=== PATIENT | female | born 1955 | race Caucasian/White ===

== ENCOUNTER 2020-08-31 08:19 | Outpatient (CLI) | payer OTHER, SELFPAY ==
--- NOTE | ~2020-08-31 | MM_ITS ---
EXAMINATION: MM screening pop BI w pepe HISTORY: Screening TECHNIQUE: Craniocaudal and mediolateral oblique 3-D tomosynthesis images were obtained and synthetic 2-D images were generated. CAD analysis was submitted and interpreted. COMPARISON: Comparison to multiple prior studies sequentially, with oldest reviewed study dated 09/12. BREAST PARENCHYMAL COMPOSITION: The breasts are heterogeneously dense, which may obscure small masses . FINDINGS: There is no evidence of suspicious mass, calcification, or architectural distortion to sugg est malignancy in either breast. There has been no suspicious interval change. IMPRESSION: 1. No mammographic evidence of malignancy. 2. Recommend routine screening mammography in one year. BI-RADS Category 1: Negative Reviewed, dictated and finalized at location A.
== END 2020-08-31 08:20 | disposition home or self-care (01) ==
LOC: ANHIMG 08:22
PROVIDERS: Visit Provider Obstetrics & Gynecology
DX: Z12.31 Encounter for screening mammogram for malignant neoplasm of breast (principal)
CPT/HCPCS: 77063; 77067

== ENCOUNTER → 2021-10-06 10:12 | Outpatient (CLI) | payer OTHER, SELFPAY ==
--- NOTE | ~2021-10-06 | US_ITS ---
EXAMINATION: US transvaginal DATE: 10/06/2021 10:38 INDICATION: Adnexal cyst. Comparison:No prior studies for comparison. TECHNIQUE: Multiple transabdominal and endovaginal sonographic images of the pelvis performed. FINDINGS: The uterus measures 4.5 x 2.4 x 4 cm. The endometrial complex measures 2 mm. The ovaries are not visualized. There is no free fluid in the pelvis. There are no abnormal masses seen on either side. IMPRESSION: 1. Unremarkable pelvic ultrasound. Reviewed, dictated and finalized at location A.
== END ==
PROVIDERS: PCP Physician Assistant; Visit Provider Physician Assistant
DX: N94.9 Unspecified condition associated with female genital organs and menstrual cycle (principal)
CPT/HCPCS: 76830

== ENCOUNTER 2022-01-04 12:55 | Outpatient (CLI) | payer OTHER, SELFPAY ==
--- NOTE | ~2022-01-04 | MM_ITS ---
EXAMINATION: MM screening pop BI w pepe HISTORY: Screening TECHNIQUE: Craniocaudal and mediolateral oblique 3-D tomosynthesis images were obtained and synthetic 2-D images were generated. CAD analysis was submitted and interpreted. COMPARISON: Comparison to multiple prior studies sequentially, with oldest reviewed study dated 09/12. BREAST PARENCHYMAL COMPOSITION: The breasts are heterogeneously dense, which may obscure small masses . FINDINGS: There is no evidence of suspicious mass, calcification, or architectural distortion to sugg est malignancy in either breast. There has been no suspicious interval change. IMPRESSION: 1. No mammographic evidence of malignancy. 2. Recommend routine screening mammography in one year. BI-RADS Category 1: Negative Reviewed, dictated and finalized at location D.
== END 2022-01-04 12:56 | disposition home or self-care (01) ==
PROVIDERS: PCP Family Medicine; Visit Provider Obstetrics & Gynecology
DX: Z12.31 Encounter for screening mammogram for malignant neoplasm of breast (principal)
CPT/HCPCS: 77063; 77067

== ENCOUNTER 2023-05-14 08:30 | Outpatient (CLI) | payer OTHER, SELFPAY ==
--- NOTE | ~2023-05-14 | MM_ITS ---
EXAMINATION: MM screening pop BI w pepe HISTORY: Screening mammogram TECHNIQUE: Craniocaudal and mediolateral oblique 3-D tomosynthesis images were obtained and synthetic 2-D images were generated. CAD analysis was submitted and interpreted. COMPARISON: 01/04/2022, 08/31/2020 bilateral screening mammogram examinations BREAST PARENCHYMAL COMPOSITION: The breasts are heterogeneously dense, which may obscure small masses . FINDINGS: Scattered bilateral benign calcifications. Benign arterial calcification. Arterial calcific ation may be associated with increased risk for coronary artery disease. There is no evidence of susp icious mass, calcification, or architectural distortion to suggest malignancy in either breast. There has been no suspicious interval change. IMPRESSION: 1. Benign calcifications No mammographic evidence of malignancy. 2. Recommend routine screening mammography in one year. BI-RADS Category 2: Benign finding(s). Reviewed, dictated and finalized at location A.
--- NOTE | ~2023-05-14 | DEXA_ITS ---
Bone Density Report Name: BUNNY BARRAGAN Age: 67 Sex: Female Ethnicity: White Date of : 1955 Indication: postmenopausal; screening for osteoporosis; Referring Provider: SHANIA, PAYAM Study: Bone densitometry was performed. Exam Date: May 14, 2023 Accession number: [id number] Bone Density: Region BMD T-score Z-score Classification AP Spine(L1-L4) 0.670 -3.4 -1.5 Osteoporosis Femoral Neck (Left) 0.547 -2.7 -1.1 Osteoporosis Total Hip (Left) 0.680 -2.2 -0.8 Osteopenia Femoral Neck (Right) 0.588 -2.4 -0.7 Osteopenia Total Hip (Right) 0.712 -1.9 -0.5 Osteopenia Total Hip Mean 0.696 -2.1 -0.7 Osteopenia World Health Organization criteria for BMD impression classify patients as: Normal (T-score at or above -1.0), Osteopenia (T-score between -1.0 and -2.5), or Osteoporosis (T-score at or below -2.5). 10-year Fracture Risk: FRAX not reported because: Some T-score for Spine Total or Hip Total or Femoral Neck at or below -2.5 Clinical Information Provided by Patient: Patient maximum height was 61.5 No regular weight bearing exercise Drinks caffeinated beverages Onset of menses at age 14 Number of children 2 Impression: The patient has osteoporosis, based on the Total Spine T-score. Discussion: INCREASED RISK OF FRACTURE. BONE DENSITY IS UNDESIRABLY LOW AT ONE OR MORE SKELETAL SITES, CONSISTENT WITH POSTMENOPAUSAL OSTEOPOROSIS. This patient's lowest T-score meets the World Health Organization's (WHO) criteria for osteoporosis at one or more sites (T-score -2.5 or below). In untreated patients, the risk of osteoporotic fracture increases approximately two-fold for each 1.0 SD decrease in T-score. Low bone density is not the only risk factor for fracture; also consider factors such as patient's age, frailty or poor health, risk of falling, risk of injury, previous osteoporotic fracture, family history of osteoporosis, cigarette smoking, low body weight, etc. Not everyone with low bone mineral density has osteoporosis; osteomalacia and other metabolic bone disorders should also be considered. Patients who have osteoporosis should be evaluated for specific diseases and conditions (secondary causes) that may cause or contribute to bone loss. The [place] [employer] Endocrinologists (AACE) and National Osteoporosis Foundation (NOF) recommend pharmacologic intervention for all postmenopausal women whose T-score is in this range. The patient should follow a healthful lifestyle (good nutrition with adequate calcium and vitamin D, and appropriate weight-bearing exercise). Follow-Up: Consider a repeat BMD and Vertebral Fracture Assessment (VFA) exam in 2 years or sooner if medically necessary, to reassess this patient's status. Reported by: JACINTA on 05/14/2023 8:57:00 AM.
== END 2023-05-14 08:31 | disposition home or self-care (01) ==
LOC: ANHIMG 08:33
PROVIDERS: PCP Nurse Practitioner Family; Visit Provider Nurse Practitioner Family
DX: Z12.31 Encounter for screening mammogram for malignant neoplasm of breast (principal); M81.0 Age-related osteoporosis without current pathological fracture; Z78.0 Asymptomatic menopausal state; M85.852 Other specified disorders of bone density and structure, left thigh; M85.851 Other specified disorders of bone density and structure, right thigh
CPT/HCPCS: 77063; 77067; 77080

== ENCOUNTER 2023-11-10 20:39 | Observation (INO) | payer OTHER, SELFPAY ==
[2023-11-10] VITALS (12 sets, daily range): BP systolic 94–145; BP diastolic 47–70; PULSE 79–95; RESP 15–26; TEMP 36.4; O2SAT 96–99
--- NOTE | ~2023-11-10 | XR_ITS ---
XR chest 1V portable DATE: 11/11/2023 14:23 INDICATION: Drug overdose TECHNIQUE: Portable upright AP view COMPARISON: 09/20/2018 PA chest FINDINGS: Normal heart size. There is mild aortic arch calcification and aortic unfolding. No hilar or mediastinal enlargement. No pulmonary infiltrate or consolidation, pulmonary vascular congestion or pleural effusion or pneumo thorax. Osteopenia. IMPRESSION: No active cardiopulmonary disease Reviewed, dictated and finalized at location A.
--- NOTE | 2023-11-10 20:40 | ECG_ITS ---
Test Date: 2023-11-10 21:06:18 Measurements Intervals [place] Rate: 84 P: 52 DE: 154 QRS: 15 QRSD: 77 T: 34 QT: 333 QTc: 395 Interpretive Statements SINUS RHYTHM BASELINE ARTIFACT- I, II, III, AVR, AVL, AVF, V2 NORMAL ECG No previous ECG available for comparison Electronically Signed On 11-11-2023 08:35:03 CDT by Bhupinder Cali D.O.
--- NOTE | 2023-11-10 21:12 | PC.NURSE ---
[place] poison control contacted
[2023-11-10 21:13] LABS: Basophils Percent Auto 0.6 % (0.2-1.2); Eosinophils Absolute Auto 0.2 K/mm3 (0-0.3); Eosinophils Percent Auto 2.4 % (0-4.4); Hematocrit 40.9 % (37.0-47.0); Hemoglobin 13.5 g/dL (12.0-15.0); Immature Granulocyte Absolute 0.02 K/mm3 (0.00-0.031); Immature Granulocyte Percent A 0.3 % (0-0.5); Lymphocytes Absolute Auto 2.31 K/mm3 (0.9-3.2); Lymphocytes Percent Auto 34.3 % (18.3-44.2); Mean Corpuscular Hemoglobin 29.9 pg (26-34); Mean Corpuscular Volume 90.5 fl (80-100); Mean Platelet Volume 9.9 fl (7.4-10.4); Monocytes Absolute Auto 0.6 K/mm3 (0.1-0.6); Monocytes Percent Auto 9.4 % (2.6-8.5); Neutrophils Absolute Auto 3.6 K/mm3 (1.3-6.7); Platelet Count Result 322 k/mm3 (150-375); Red Blood Count 4.52 M/mm3 (4.2-5.4); Red Cell Distribution Width 13.3 % (11.5-14.5); White Blood Count 6.7 K/mm3 (4.5-10.0)
[2023-11-10 21:15] LABS: BEDSIDEPREGUCG Negative (Negative)
[2023-11-10 21:23] LABS: Acetaminophen < 10 ug/mL (10-30); Ethanol < 10 mg/dL (<10); Salicylate < 1.0 mg/dL (2-20)
[2023-11-10 21:24] LABS: Alanine Aminotransferase 27 U/L (6-35); Albumin Level 4.7 g/dL (3.5-5.1); Alkaline Phosphatase 63 U/L (38-126); Anion Gap 13 mmol/L (4-12); Aspartate Amino Transferase 33 U/L (14-36); Bilirubin,Total 0.3 mg/dL (0.2-1.3); Blood Urea Nitrogen 8 mg/dL (7-17); Calcium 9.5 mg/dL (8.4-10.2); Carbon Dioxide 28 mmol/L (22-30); Chloride 97 mmol/L (98-107); Estimated CRCL calculation 33 ml/min; Estimated Glomerular Filt Rate 49; Glucose 142 mg/dL (65-110); Sodium 138 mmol/L (137-145)
[2023-11-10 21:30] LABS: Amphetamine Screen Urine Negative (Negative); Barbiturate Screen Urine Negative (Negative); Benzodiazepines Screen Urine Negative (Negative); Cannabinoid Screen Urine Negative (Negative); Cocaine Screen Urine Negative (Negative); Methadone Screen Urine Negative (Negative); Opiate Screen Urine Negative (Negative); Phencyclidine Screen Urine Negative (Negative)
[2023-11-10 22:16] LABS: Add Urine Microscopic? YES; Appearance Urine Clear (Clear); Bacteria Urine None Seen /hpf; Bilirubin Urine Negative (Negative); Blood Urine 1+ (Negative); Color Urine Yellow (Yellow); Glucose Urine UA Negative (Negative); Ketones Urine Negative (Negative); Leukocyte Esterase Ur Trace LEU/UL (Negative); Need Manual Microscopic Reviewed; Nitrate Urine Negative (Negative); Non Pathogenic Casts 0-2; Protein Urine Negative (Negative); RBC Urine 0-2 /hpf (0-2); Specific Grav Ur 1.003 (1.001-1.035); Squamous Epithelial Cell Urine None Seen /hpf (Few); Urobilinogen Urine 0.2 mg/dL (<2.0); WBC Urine 0-5 /hpf (0-3)
[2023-11-10] MEDS: SODIUM CHLORIDE 0.9% IV 1,000 ML 999 ML IV CONT ×3 (22:19→23:33)
--- NOTE | 2023-11-10 22:19 | ED.OVERDOSE ---
HPI - Overdose General Chief Complaint: Overdose Stated Complaint: overdose Time Seen by Provider: 11/10/23 21:09 History of Present Illness HPI Narrative: 68 Year old female presenting after suicide attempt. Patient's is at bedside and helps with the history. Sounds like she has a very long history of depression that has been very difficult to manage. She has undergone shock treatments and has been hospitalized multiple times. Her last hospitalization was approximately 4-5 years ago. Her psychiatrist has been changing some of her medications around and unfortunately her depression has been worsening and she feels her intrusive thoughts have made living unbearable. Tonight she took 13 mg of lorazepam with the intent to end her life as she feels that she cannot take it anymore. She immediately went downstairs and told her who brought her in for evaluation. Currently, she denies complaints. Feels a bit sleepy. Related Data Home Medications Medication Instructions Recorded Confirmed buspirone 30 mg tablet 30 mg PO BID 09/28/21 11/11/23 carvedilol 6.25 mg tablet 6.25 mg PO BID 11/11/23 11/11/23 lamotrigine 100 mg tablet 100 mg PO DAILY 11/11/23 11/11/23 lorazepam 1 mg tablet 1 mg PO Q6H PRN Anxiety 11/11/23 11/11/23 melatonin 10 mg chewable tablet 10 mg PO HS 11/11/23 11/11/23 olanzapine 5 mg tablet 5 mg PO HS 11/11/23 11/11/23 rosuvastatin 40 mg tablet 40 mg PO HS 11/11/23 11/11/23 sacubitril 24 mg-valsartan 26 mg 1 tablet PO BID 11/11/23 11/11/23 tablet (Entresto) valbenazine 80 mg capsule 80 mg PO DAILY 11/11/23 11/11/23 (Ingrezza) desvenlafaxine 50 mg 100 mg PO DAILY 11/13/23 11/13/23 tablet,extended release 24 hr Allergies Allergy/AdvReac Type Severity Reaction Status Date / Time Dust Allergy Unknown ITCHING, Uncoded 11/10/23 21:13 WATERING EYES, SNEEZING Review of Systems Review of Systems: All systems reviewed & are unremarkable except as noted in HPI and below PMFSH Past Medical History Medical History (Updated 09/12/24 @ 18:33 by Albina Huang MD) Abnormal Pap smear of cervix 08/05/14 hpv positive; colp 09/16/14 LGSIL LEOLA 1; 02/13/17 (+) hpv; Anxiety Depression High cholesterol History of delivery @ 6m due to 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 Osteoporosis Other ovarian cyst, right side Screening mammogram, encounter for Surgical History Surgical History H/O left wrist surgery (02/02/15) History of 1979, 1983 History of colposcopy with cervical biopsy 09/16/14 benign 03/03/19 Family History Family History Mother Heart disease Osteoporosis Father Diabetes mellitus Malignant neoplasm of skin Social History Social History Smoking packs per day: 1 Smoking cigarettes per day: 20.0 Years smoked: 34 Smoking pack-years: 34.00 Smoking status: Former smoker Tobacco type: cigarettes Smoking end date: 03/05/00 Alcohol intake: current Drinks per week: 3 Substance use: never Substance use type: does not use Do You Feel Safe in your Home?: Yes Lack of Transportation: No Lack of Food: Never True Current Housing: I Have Housing Concerned About Future Housing: No Difficulty Paying Gas/Electric Bills: No Difficulty Paying for Meds: No Currently Unemployed: No Education: High School Diploma/GED Difficulty w/ Childcare or Family Care: No Living arrangements: other Additional living arrangements comments: Occupation/Education: retired Gender identity (if verbalized by the patient): Female Sexual Orientation (if Verbalized by the Patient): Straight or Heterosexual Spiritual care concerns: No Exam Narrative: GENERAL: Calm, cooperative, appears somnolent HEAD: Normocephalic, atraumatic. EYES:
[2023-11-10 22:22] LABS: SARS-CoV-2 RNA PCR Negative (Negative)
--- NOTE | 2023-11-10 23:24 | PM.IMHP ---
H&P: HPI History of Present Illness Date/Time: 11/10/23 23:24 Chief Complaint: OD Narrative: THIS IS A 68-YEAR-OLD FEMALE WITH PAST MEDICAL HISTORY SIGNIFICANT FOR GENERALIZED ANXIETY DISORDER, MAJOR DEPRESSION, OSTEOPOROSIS. PATIENT WAS HAVING THOUGHTS OF HURTING HERSELF TODAY AND TOOK SEVERAL OF HER LORAZEPAM TABLET AND WAS BROUGHT TO THE EMERGENCY ROOM AFTER SHE TOLD HER . 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 Osteoporosis Other ovarian cyst, right side Screening mammogram, encounter for Surgical History Surgical History H/O left wrist surgery (02/02/15) History of 1979, 1983 History of colposcopy with cervical biopsy 09/16/14 benign 03/03/19 Family History Family History Mother Heart disease Osteoporosis Father Diabetes mellitus Malignant neoplasm of skin Social History Social History Smoking packs per day: 1 Smoking cigarettes per day: 20.0 Years smoked: 34 Smoking pack-years: 34.00 Smoking status: Former smoker Tobacco type: cigarettes Smoking end date: 03/05/00 Alcohol intake: current Drinks per week: 3 Substance use: never Substance use type: does not use Do You Feel Safe in your Home?: Yes Lack of Transportation: No Lack of Food: Never True Current Housing: I Have Housing Concerned About Future Housing: No Difficulty Paying Gas/Electric Bills: No Difficulty Paying for Meds: No Currently Unemployed: No Education: High School Diploma/GED Difficulty w/ Childcare or Family Care: No Living arrangements: other Additional living arrangements comments: Occupation/Education: retired Gender identity (if verbalized by the patient): Female Sexual Orientation (if Verbalized by the Patient): Straight or Heterosexual Spiritual care concerns: No Meds Home Medications and Allergies Home Medications Medication Instructions Recorded Confirmed Type buspirone 30 mg tablet 30 mg PO BID 09/28/21 11/11/23 History carvedilol 6.25 mg tablet 6.25 mg PO BID 11/11/23 11/11/23 History lamotrigine 100 mg tablet 100 mg PO DAILY 11/11/23 11/11/23 History lorazepam 1 mg tablet 1 mg PO Q6H PRN Anxiety 11/11/23 11/11/23 History melatonin 10 mg chewable tablet 10 mg PO HS 11/11/23 11/11/23 History olanzapine 5 mg tablet 5 mg PO HS 11/11/23 11/11/23 History rosuvastatin 40 mg tablet 40 mg PO HS 11/11/23 11/11/23 History sacubitril 24 mg-valsartan 26 mg 1 tablet PO BID 11/11/23 11/11/23 History tablet (Entresto) valbenazine 80 mg capsule 80 mg PO DAILY 11/11/23 11/11/23 History (Ingrezza) Allergies Allergy/AdvReac Type Severity Reaction Status Date / Time Dust Allergy Unknown ITCHING, Uncoded 11/10/23 21:13 WATERING EYES, SNEEZING Vital Signs Vital Signs - 24 hr 11/10/23 20:46 11/10/23 21:08 11/10/23 21:08 Temperature 97.5 F L Pulse Rate 88 Respiratory Rate 20 15 Blood Pressure 145/70 H Pulse Oximetry 99 98 Oxygen Delivery Room Air Room Air 11/10/23 21:12 Temperature Pulse Rate 91 Respiratory Rate 22 H Blood Pressure 129/58 L Pulse Oximetry 98 Oxygen Delivery Exam Narrative: PATIENT IS LAYING IN A STRETCHER Const: General: comfortable, no acute distress, well developed, alert, awake and average body habitus Nutritional Appearance: average body habitus Orientation/con
[2023-11-11] VITALS (14 sets, daily range): BP systolic 96–167; BP diastolic 49–144; PULSE 60–118; RESP 12–18; TEMP 36.5–37.1; O2SAT 96–100; BMI 23.1
--- NOTE | 2023-11-11 01:44 | ADMGEN ---
This patient, Lelo Cazares, was admitted to Intensive Care Unit-4 on 11/11/23 at 0045. Patient/family oriented to hospital policies and general routines including ID bracelet, bed and alarms, visiting hours, pain management, procedures, bathroom and other care routines, personal items, smoking policy, room service/diet, and visiting hours. Information on how to activate the Rapid Response Team has been discussed. Patient/Family are encouraged to report perceived risks to care and to ask questions if they do not understand what they are told or what they should do.
[2023-11-11 03:34] LABS: MRSA (PCR) NOT DETECTED (NOT DETECTE)
--- NOTE | 2023-11-11 08:22 | WPDCNINT ---
Assessment and Plan Assessment and plan (1) Benzodiazepine (tranquilizer) overdose: Code(s): T42.4X1A - Poisoning by benzodiazepines, accidental (unintentional), initial encounter Status: Acute Assessment and Plan: Patient presented with lorazepam over does, patient took lorazepam 1 mg x 13 pills for a total of 30 mg, after ingestion she immediately told her who brought to the ER. Patient was given 3 L IV fluids, was be slightly somnolent in the ER, poison Control was notified and recommended monitoring patient as an inpatient. -urine drug screen was negative -patient denies any of the medications or illicit drug use -once patient is medically stable will have care coordination and crisis management evaluate the patient (2) Suicidal ideation: Code(s): R45.851 - Suicidal ideations Status: Acute Assessment and Plan: Patient did agrees to taking lorazepam 30 mg to harm herself and end her life as her depression has been worsening and she feels intrusive thoughts have made living unbearable. -continue suicide precautions -bedside sitter -she did tell the ER physician that she is suicidal but not homicidal (3) CHF (congestive heart failure): Qualifiers: Heart failure type: unspecified Heart failure chronicity: unspecified Qualified Code(s): I50.9 - Heart failure, unspecified Code(s): I50.9 - Heart failure, unspecified Status: Acute Assessment and Plan: Unspecified CHF, no echocardiogram in our system -patient is on Entresto and Coreg, will currently hold as patient blood pressures were low (4) Depression: Qualifiers: Depression Type: major depressive disorder Major depression recurrence: recurrent Active/Remission status: currently active Major depression episode severity: unspecified Qualified Code(s): F33.9 - Major depressive disorder, recurrent, unspecified Code(s): F32.A - Depression, unspecified Status: Acute Assessment and Plan: Patient has been battling with depression many years, she has received ECT treatment. Has been hospitalized multiple times. -her psychiatrist has been switching her depression medications -will continue buspirone, Desvenlafaxine, lamotrigine, olanzapine and trazodone Plan DVT prophylaxis: Lovenox Stress ulcer prophylaxis: Protonix (patient takes omeprazole at home) Nutrition: Heart Healthy diet Code Status: Full code Critical Care Time Spent: 44 minutes Due to a high probability of clinically significant, life threatening deterioration, the patient required my highest level of preparedness to intervene emergently and I personally spent this critical care time directly and personally managing the patient. This critical care time included obtaining a history; examining the patient; pulse oximetry; ordering and review of studies; arranging urgent treatment with development of a management plan; evaluation of patient's response to treatment; frequent reassessment; and discussions with other providers. It was exclusive of separately billable procedures and treating other patients and teaching time. Please see Assessment and Plan section and the rest of the note for further information on patient assessment and treatment This dictation may have been done utilizing a voice recognition system. Attempts have been made to correct errors. However, there may be uncorrected grammatical, spelling, and recognitions errors present. Probate Paralegal Consult Note Consult date: 11/11/23 Reason for consult: Intentional benzodiazepine overdose, suicidal behavior/attempt, somnolence HPI: Lelo Cazares is a 68 year old female with significant past medical history of depression which she has received ECT treatments and has been hospital multiple times. A psychiatrist has been switching some of her medications around and unfortunately had depression has been worsening. Patient presented with intentional overdose an
[2023-11-11] MEDS: lamoTRIgine 100 MG TABLET PO (09:51)
[2023-11-11] MEDS: ENOXAPARIN 40 MG/0.4 ML SYRINGE SUB-Q (09:51)
[2023-11-11] MEDS: busPIRone HCL 10 MG TABLET 30 MG PO (09:51)
[2023-11-11] MEDS: PANTOPRAZOLE 40 MG TABLET PO (09:51)
[2023-11-11] MEDS: SENNOSIDES 8.6 MG TABLET PO (09:52)
--- NOTE | 2023-11-11 14:09 | PM.IMPN ---
Progress Note: A&P Assessment and Plan (1) Benzodiazepine (tranquilizer) overdose: Code(s): T42.4X1A - Poisoning by benzodiazepines, accidental (unintentional), initial encounter Status: Acute Assessment and Plan: Patient presented with lorazepam over does, patient took lorazepam 1 mg x 13 pills for a total of 30 mg, after ingestion she immediately told her who brought to the ER. Patient was given 3 L IV fluids, was be slightly somnolent in the ER, poison Control was notified and recommended monitoring patient as an inpatient. -urine drug screen was negative -patient denies any of the medications or illicit drug use -once patient is medically stable will have care coordination and crisis management evaluate the patient - currently resting calmly a bedside and not on pressors or IVF (2) Suicidal ideation: Code(s): R45.851 - Suicidal ideations Status: Acute Assessment and Plan: Patient did agrees to taking lorazepam 30 mg to harm herself and end her life as her depression has been worsening and she feels intrusive thoughts have made living unbearable. -continue suicide precautions -bedside sitter -she did tell the ER physician that she is suicidal but not homicidal - Psych/Behavioral consult once medically stable (3) CHF (congestive heart failure): Qualifiers: Heart failure type: unspecified Heart failure chronicity: unspecified Qualified Code(s): I50.9 - Heart failure, unspecified Code(s): I50.9 - Heart failure, unspecified Status: Acute Assessment and Plan: Unspecified CHF, no echocardiogram in our system -patient is on Entresto and Coreg titrate with clinical course (4) Depression: Qualifiers: Depression Type: major depressive disorder Major depression recurrence: recurrent Active/Remission status: currently active Major depression episode severity: unspecified Qualified Code(s): F33.9 - Major depressive disorder, recurrent, unspecified Code(s): F32.A - Depression, unspecified Status: Acute Assessment and Plan: Patient has been battling with depression many years, she has received ECT treatment. Has been hospitalized multiple times. -her psychiatrist has been switching her depression medications -will continue buspirone, Desvenlafaxine, lamotrigine, olanzapine and trazodone monitor Plan DVT prophylaxis: Lovenox Nutrition: Heart Healthy diet Code Status: Full code Subjective Date/time seen: 11/11/23 14:09 Interval history: Resting calmly at bedside ordered CXR Review of Systems Review of Systems: OVERDOSE ON LORAZEPAM, SUICIDAL IDEATION All systems reviewed & are unremarkable except as noted in HPI and below Objective Data Vital Signs Vital Signs: Vital Signs - 24 hr 11/10/23 20:46 11/10/23 21:08 11/10/23 21:08 Temperature 97.5 F L Pulse Rate 88 Respiratory Rate 20 15 Blood Pressure 145/70 H Pulse Oximetry 99 98 Oxygen Delivery Room Air Room Air 11/10/23 21:12 11/10/23 21:05 11/10/23 21:15 Temperature Pulse Rate 91 84 95 Respiratory Rate 22 H 21 H 22 H Blood Pressure 129/58 L Pulse Oximetry 98 98 98 Oxygen Delivery 11/10/23 21:16 11/10/23 22:09 11/10/23 22:34 Temperature Pulse Rate 93 89 83 Respiratory Rate 19 26 H 21 H Blood Pressure 95/61 L Pulse Oximetry 98 96 96 Oxygen Delivery 11/10/23 22:57 11/10/23 22:58 11/10/23 23:00 Temperature Pulse Rate 89 81 81 Respiratory Rate 15 17 20 Blood Pressure 94/54 L Pulse Oximetry 96 97 96 Oxygen Delivery 11/10/23 23:01 11/11/23 02:00 11/11/23 02:00 Temperature Pulse Rate 79 78 78 Respiratory Rate 19 13 Blood Pressure 99/47 L 107/55 L Pulse Oximetry 96 100 Oxygen Delivery 11/11/23 04:00 11/11/23 04:00 11/11/23 04:00 Temperature Pulse Rate 69 65 Respiratory Rate 16 Blood Pressure 101/51 L Pulse Oximetry 99 Oxygen Delivery Room Air
--- NOTE | 2023-11-11 17:35 | PC.NURSE ---
At 1703, RN at bedside to administer prescribed PO Buspar 30 mg PO BID. RN read back medication to patient. Patient stated that she does not believe this is her most current dose of Buspar prescribed. Patient states they believe they take 15 mg PO BID Buspar. RN confirmed pharmacy of [facility] with patient. RN looked up most recent prescription history with [facility] and noted a prescription of Buspar 30 mg PO BID last filled in October on record. Patient states they may have an updated medication list at home and gave RN a location of this list. RN to call patients spouse for updated list and confirmation of medications. RN to hold 1700 Buspar at this time and update the MD.
--- NOTE | 2023-11-11 17:40 | PC.NURSE ---
At 1719, RN called patients spouse Boris via telephone for updated medication list. RN explained discussion and concerns stated at bedside with patient. Boris states that prescription bottle in cabinet for Buspar has dosing instruction to take 30 mg PO BID. [facility]acy of [facility] confirmed with Boris who states that is the only pharmacy that patient receives all their prescriptions from. Boris to look for updated medication list at home and bring up this evening so RN can reverify medications and ensure accuracy. In meantime, updated and will be made aware of any changes to home medication list.
--- NOTE | 2023-11-11 17:52 | PC.NURSE ---
Addendum entered by Shania Mcneal RN 11/11/23 19:35: Confirmed with family and patient that all medications received are filled with [facility] pharmacy in [place], [place] with the exception of Ingrezza 80 mg PO daily. Ingrezza 80 mg PO daily confirmed with patient and spouse at bedside that patient is ACTIVELY taking. Patient has this prescription filled by [facility] and sent via mail delivery. Addendum entered by Shania Mcneal RN 11/11/23 18:59: At 1830, RN took both pharmacy record list, and list obtained from Boris and verified medications at bedside with both the patient and the patients spouse Boris. Verbal communication/verified list is as follow: 1.) Lorazepam 1 mg tab PO Q6H PRN for anxiety (confirmed with patient, spouse and pharmacy) (patient ACTIVELY taking) 2.) Buspirone 30 mg PO BID (confirmed with patient, spouse, pharmacy, and list brought in by spouse) (patient ACTIVELY taking) 3.) Desvenlafaxine (confirmed with patient, spouse, and pharmacy that patient is NO longer taking this medication) 4.) Gentle move (over the counter stool softener) (confirmed with patient, spouse, and list brought in by spouse that patient is ACTIVELY taking) 5.) Olanzapine 5 mg PO at HS (confirmed with patient, spouse, pharmacy and list brought in by spouse that patient is ACTIVELY taking) 6.) Omeprazole 2 mg PO BID (confirmed with patient, spouse, and pharmacy that patient is NO longer taking) 7.) Rosuvastatin 40 mg PO at HS (confirmed with patient, spouse, and list brought in by spouse that patient is ACTIVELY taking) 8.) Senna 8.6 mg PO daily (confirmed with patient, spouse, and pharmacy that patient is NO longer taking this medication) 9.) Lamotrigine 100 mg tablet PO daily (confirmed with patient, spouse, and list brought in by spouse that patient is ACTIVELY taking) 10.) Carvedilol 6.25 mg PO BID (last filled June 2023 with 90 day supply) (Confirmed with Patient, spouse and list brought in by spouse that patient is ACTIVELY taking) 11.) Entresto 24 mg-26 mg tab PO BID (confirmed with patient, spouse, pharmacy and list brought in by spouse that patient is ACTIVELY taking) 12.) Sertraline 100 mg (confirmed with patient, spouse, and pharmacy that patient is NO longer taking) 13.) Melatonin 10 mg PO HS for sleep (confirmed with patient and spouse, patient ACTIVELY taking this medication) (over the counter medication) 14.) Trazodone ((confirmed with patient, spouse, and pharmacy that patient is NO longer taking this medication) 15.) Protonix (pharmacy listed an active script for Protonix 40 mg daily) (patient and spouse state patient is NO longer taking this medication), Patient states she is taking Pepcid instead but is unsure of dose (no record of script found in pharmacy records) Patient confirmed that she takes a multivitamin and prebiotic/probiotic gummies daily (multivitamins, prebiotic/probiotic gummies, pepcid, and gentle move herbal stool softener) all unable to be added to patient home medication list due to either: unable to find dose, brand or medication is over the counter or not FDA approved. All other medications updated and verified extensively with patient, spouse, pharmacy and med list to ensure accuracy. Medication list updated in electronic records system. [employer] updated of changes to home medication list and to update current in hospital med list to reflect home medication list. Addendum entered by Shania Mcneal RN 11/11/23 18:47: RN called [facility] pharmacy in [place], [place] at 1800, pharmacy closed at this time. RN called 24-hr [facility] in [place], [place] at 1802 to confirm medication list with active prescriptions. Per [facility] pharmacy records, medication list as follows: 1.) Lorazepam 0.5 mg was D/C'd (patient currently taking Lorazepam 1 mg PO Q6H PRN for anxiety per pharmacy records) 2.) Buspirone 30 mg PO BID 3.) Desvenlafaxine 50 mg PO daily was D'C'd, last dose prescribed was 100 mg PO daily, this dose was also D'C'd as of Au
--- NOTE | 2023-11-11 19:41 | PC.NURSE ---
Spoke with Isabelle PAC at 1941 to notify of home medication list adjustment based on spouse, patient and pharmacy report of active medications. Isabelle to filter medication list and D/C all medications that patient is not actively taking in hospital restarted prescriptions.
[2023-11-11] MEDS: ROSUVASTATIN 20 MG TABLET 40 MG PO (20:23)
[2023-11-11] MEDS: OLANZapine 5 MG TABLET PO (20:24)
[2023-11-11] MEDS: MELATONIN 5 MG TABLET PO (21:05)
[2023-11-12] VITALS: BP 98/50; PULSE 73; PULSE 75; RESP 15; O2SAT 98
[2023-11-12 04:00] VITALS: PULSE 65
[2023-11-12 04:01] VITALS: BP 99/62; PULSE 65; RESP 13; O2SAT 98
[2023-11-12 04:30] LABS: Basophils Percent Auto 0.4 % (0.2-1.2); Eosinophils Absolute Auto 0.2 K/mm3 (0-0.3); Eosinophils Percent Auto 2.6 % (0-4.4); Hematocrit 37.6 % (37.0-47.0); Hemoglobin 12.4 g/dL (12.0-15.0); Immature Granulocyte Absolute 0.02 K/mm3 (0.00-0.031); Immature Granulocyte Percent A 0.3 % (0-0.5); Lymphocytes Absolute Auto 2.64 K/mm3 (0.9-3.2); Lymphocytes Percent Auto 38.6 % (18.3-44.2); Mean Corpuscular Hemoglobin 29.8 pg (26-34); Mean Corpuscular Volume 90.4 fl (80-100); Mean Platelet Volume 9.3 fl (7.4-10.4); Monocytes Absolute Auto 0.7 K/mm3 (0.1-0.6); Monocytes Percent Auto 10.7 % (2.6-8.5); Neutrophils Absolute Auto 3.2 K/mm3 (1.3-6.7); Neutrophils Percent Auto 47.4 % (45.5-73.1); Platelet Count Result 270 k/mm3 (150-375); Red Blood Count 4.16 M/mm3 (4.2-5.4); Red Cell Distribution Width 13.4 % (11.5-14.5); White Blood Count 6.8 K/mm3 (4.5-10.0)
--- NOTE | 2023-11-12 04:34 | PC.NURSE ---
Poison control case #[id number]
[2023-11-12 04:43] LABS: Alanine Aminotransferase 20 U/L (6-35); Albumin Level 3.5 g/dL (3.5-5.1); Alkaline Phosphatase 65 U/L (38-126); Anion Gap 4 mmol/L (4-12); Aspartate Amino Transferase 30 U/L (14-36); Bilirubin,Total 0.5 mg/dL (0.2-1.3); Blood Urea Nitrogen 11 mg/dL (7-17); Calcium 9.2 mg/dL (8.4-10.2); Carbon Dioxide 28 mmol/L (22-30); Chloride 105 mmol/L (98-107); Estimated CRCL calculation 40 ml/min; Estimated Glomerular Filt Rate > 60; Glucose 81 mg/dL (65-110); Magnesium 1.9 mg/dL (1.6-2.3); Phosphorus 4.1 mg/dL (2.5-4.5); Potassium 4.6 mmol/L (3.4-5.0); Sodium 137 mmol/L (137-145)
[2023-11-12 08:00] VITALS: BP 123/66; PULSE 67; PULSE 74; RESP 14; TEMP 36.8; O2SAT 97
[2023-11-12] MEDS: ENOXAPARIN 40 MG/0.4 ML SYRINGE SUB-Q (09:30)
[2023-11-12] MEDS: PANTOPRAZOLE 40 MG TABLET PO (09:30)
[2023-11-12] MEDS: lamoTRIgine 100 MG TABLET PO (09:30)
--- NOTE | 2023-11-12 09:31 | PHAR ---
Home medication identified in pharmacy. Ingrezza 80mg capsules- 2 capsules in special alert container. Returned to ICU
[2023-11-12] MEDS: busPIRone HCL 10 MG TABLET 30 MG PO ×2 (09:41→17:51)
--- NOTE | 2023-11-12 10:07 | PM.IMPN ---
Progress Note: A&P Assessment and Plan (1) Overdose: Code(s): T50.901A - Poisoning by unspecified drugs, medicaments and biological substances, accidental (unintentional), initial encounter Status: Acute Assessment and Plan: patient alert adn oriented x3 Poison control was called prior to admission patient has never required pressors this admission Patient having conversation and having adequate oral intake Patient is medically stable for discharge to inpatient psych (2) Suicidal ideation: Code(s): R45.851 - Suicidal ideations Status: Acute Assessment and Plan: Suicide precautions medically stable for inpatient discharge Plan HLD continue Crestor DVT prophylaxis on Sq Lovenox Awaiting discharge to inpatient psych Subjective Date/time seen: 11/12/23 10:07 Interval history: Resting calmly at bedside this morning Oral intake adequate and patient has not been on pressor support since admission Review of Systems Review of Systems: OVERDOSE ON LORAZEPAM, SUICIDAL IDEATION All systems reviewed & are unremarkable except as noted in HPI and below Exam Narrative: General: Pleasant female in no acute distress HEENT:? Pupils equal and reactive, sclera is clear, moist oral mucosa Neck:? Supple Respiratory:? Clear to auscultation bilaterally, no wheezing, adequate air entry Cardiac:? S1-S2 normal, regular rate and rhythm Abdomen:? Soft, nondistended, nontender, normoactive bowel sounds Extremities:? No edema, palpable pedal pulses Neuro:? Somnolent but easily arousable, answers to questions and follows commands Skin:? No lesions noted Psych:? Flat affect, normal mentation Const: General: comfortable, no acute distress, well developed, alert, awake and average body habitus Nutritional Appearance: average body habitus Orientation/consciousness: patient oriented x3 HENMT: Head: normal to inspection, normocephalic and atraumatic Ears: hearing grossly normal bilaterally Face/Nose/Sinus: normal facial exam Face and sinus: normal facial exam Eyes: General: appearance normal, both eyes and all related structures Pupils: Equal, round and reactive pupils present EOM: EOMs intact bilaterally Neck: Neck: full ROM, no lymphadenopathy and no JVD Thyroid: thyroid normal Lymphatic: no lymphadenopathy noted Resp: Effort & Inspection: normal respiratory effort and able to speak in complete sentences Auscultation: clear to auscultation bilaterally Cardio: Jugular venous distension: no JVD Rate: regular rate Rhythm: regular rhythm Heart sounds: S1 normal heart sound present and S2 normal heart sound present : General: Yes deferred Skin: Rashes: no rashes Wounds: no wounds Neuro: General: patient oriented x3 and CN's II-XI intact bilaterally Cranial nerves: Yes CN's II-XII intact bilaterally and Yes Equal, round and reactive pupils present Cognition (Neuro): normal cognition Speech: normal speech Gait exam (Neuro): Normal gait present Motor exam (neuro): 5/5 motor strength present throughout Extrem: General: normal to inspection, full ROM, no joint enlargement and no pedal edema Objective Data Vital Signs Vital Signs: Vital Signs - 24 hr 11/11/23 12:00 11/11/23 12:00 11/11/23 12:00 Temperature 97.8 F Pulse Rate 73 60 Respiratory Rate 14 15 Blood Pressure 112/49 L Pulse Oximetry 97 97 Oxygen Delivery Room Air 11/11/23 16:00 11/11/23 16:00 11/11/23 19:41 Temperature 98.8 F Pulse Rate 99 76 85 Respiratory Rate 18 16 Blood Pressure 113/53 L Pulse Oximetry 96 97 Oxygen Delivery Room Air 11/11/23 20:00 11/11/23 19:00 11/11/23 20:01 Temperature Pulse Rate 71 85 118 H Respiratory Rate 16 16 Blood Pressure 120/88 167/144 H Pulse Oximetry 98 98 Oxygen Delivery 11/11/23 20:31 11/11/23 21:00 11/12/23 00:00 Temperature Pulse Rate 83 79 75 Respiratory Rate 16 17 15 Blood Pressure 128/62 98/50 L Pulse Oximetry
[2023-11-12 10:09] VITALS: BMI 24.2
[2023-11-12 16:00] VITALS: BP 122/62; PULSE 78; RESP 15; TEMP 36.7; O2SAT 97
[2023-11-12] MEDS: LORazepam (*CRX) 1 MG TABLET PO (17:51)
[2023-11-12 21:00] VITALS: BP 130/62; PULSE 86; RESP 15; TEMP 36.5; O2SAT 98
[2023-11-12] MEDS: OLANZapine 5 MG TABLET PO (21:22)
[2023-11-12] MEDS: MELATONIN 5 MG TABLET 10 MG PO (21:22)
[2023-11-12] MEDS: ROSUVASTATIN 20 MG TABLET 40 MG PO (21:22)
--- NOTE | 2023-11-13 04:27 | PC.NURSE ---
0315: Spoke with Deana in [facility]'s intake department. She is expecting female discharges in the morning and expects to have a bed available for the patient then.
[2023-11-13 04:51] LABS: Basophils Absolute Auto 0.1 K/mm3 (0.0-0.1); Basophils Percent Auto 0.7 % (0.2-1.2); Eosinophils Absolute Auto 0.2 K/mm3 (0-0.3); Eosinophils Percent Auto 2.6 % (0-4.4); Hematocrit 38.1 % (37.0-47.0); Hemoglobin 12.3 g/dL (12.0-15.0); Immature Granulocyte Absolute 0.01 K/mm3 (0.00-0.031); Immature Granulocyte Percent A 0.1 % (0-0.5); Lymphocytes Absolute Auto 2.44 K/mm3 (0.9-3.2); Lymphocytes Percent Auto 35.8 % (18.3-44.2); Mean Corpuscular HGB Conc 32.3 g/dl (32-36); Mean Corpuscular Hemoglobin 29.1 pg (26-34); Mean Corpuscular Volume 90.1 fl (80-100); Mean Platelet Volume 9.5 fl (7.4-10.4); Monocytes Absolute Auto 0.8 K/mm3 (0.1-0.6); Monocytes Percent Auto 11.6 % (2.6-8.5); Neutrophils Absolute Auto 3.3 K/mm3 (1.3-6.7); Neutrophils Percent Auto 49.2 % (45.5-73.1); Platelet Count Result 284 k/mm3 (150-375); Red Blood Count 4.23 M/mm3 (4.2-5.4); Red Cell Distribution Width 13.5 % (11.5-14.5); White Blood Count 6.8 K/mm3 (4.5-10.0)
[2023-11-13 05:04] LABS: Alanine Aminotransferase 21 U/L (6-35); Albumin Level 3.8 g/dL (3.5-5.1); Alkaline Phosphatase 64 U/L (38-126); Anion Gap 8 mmol/L (4-12); Aspartate Amino Transferase 27 U/L (14-36); Bilirubin,Total 0.6 mg/dL (0.2-1.3); Blood Urea Nitrogen 10 mg/dL (7-17); Calcium 9.1 mg/dL (8.4-10.2); Carbon Dioxide 28 mmol/L (22-30); Chloride 104 mmol/L (98-107); Estimated CRCL calculation 40 ml/min; Estimated Glomerular Filt Rate > 60; Glucose 87 mg/dL (65-110); Magnesium 1.9 mg/dL (1.6-2.3); Potassium 3.6 mmol/L (3.4-5.0); Sodium 140 mmol/L (137-145)
[2023-11-13 06:00] VITALS: BP 122/62; PULSE 72; RESP 20; TEMP 36.6; O2SAT 95
[2023-11-13 08:00] VITALS: BP 132/74; PULSE 87; RESP 16; TEMP 36.6; O2SAT 97
[2023-11-13] MEDS: busPIRone HCL 10 MG TABLET 30 MG PO (09:00)
[2023-11-13] MEDS: lamoTRIgine 100 MG TABLET PO (09:00)
[2023-11-13] MEDS: ENOXAPARIN 40 MG/0.4 ML SYRINGE SUB-Q (09:01)
[2023-11-13] MEDS: DESVENLAFAXINE SUCCINATE 50 MG TAB.ER.24H 100 MG PO (12:37)
[2023-11-13 16:00] VITALS: BP 130/70; PULSE 90; RESP 18; TEMP 36.4; O2SAT 98
--- NOTE | 2023-11-13 16:50 | PM.IMPN ---
Progress Note: A&P Assessment and Plan (1) Overdose: Code(s): T50.901A - Poisoning by unspecified drugs, medicaments and biological substances, accidental (unintentional), initial encounter Status: Acute Assessment and Plan: patient alert adn oriented x3 Poison control was called prior to admission patient has never required pressors this admission Patient having conversation and having adequate oral intake Patient is medically stable for discharge to inpatient psych (2) Suicidal ideation: Code(s): R45.851 - Suicidal ideations Status: Acute Assessment and Plan: Suicide precautions medically stable for inpatient discharge Plan HLD continue Crestor DVT prophylaxis on Sq Lovenox Awaiting discharge to inpatient psych Subjective Date/time seen: 11/13/23 16:50 Interval history: Patient was examined at the bedside. Patient is currently doing well no suicidal ideation. Pending inpatient psychiatric placement. Review of Systems Review of Systems: OVERDOSE ON LORAZEPAM, SUICIDAL IDEATION All systems reviewed & are unremarkable except as noted in HPI and below Exam Narrative: General: Pleasant female in no acute distress HEENT:? Pupils equal and reactive, sclera is clear, moist oral mucosa Neck:? Supple Respiratory:? Clear to auscultation bilaterally, no wheezing, adequate air entry Cardiac:? S1-S2 normal, regular rate and rhythm Abdomen:? Soft, nondistended, nontender, normoactive bowel sounds Extremities:? No edema, palpable pedal pulses Neuro:? Somnolent but easily arousable, answers to questions and follows commands Skin:? No lesions noted Psych:? Flat affect, normal mentation Const: General: comfortable, no acute distress, well developed, alert, awake and average body habitus Nutritional Appearance: average body habitus Orientation/consciousness: patient oriented x3 HENMT: Head: normal to inspection, normocephalic and atraumatic Ears: hearing grossly normal bilaterally Face/Nose/Sinus: normal facial exam Face and sinus: normal facial exam Eyes: General: appearance normal, both eyes and all related structures Pupils: Equal, round and reactive pupils present EOM: EOMs intact bilaterally Neck: Neck: full ROM, no lymphadenopathy and no JVD Thyroid: thyroid normal Lymphatic: no lymphadenopathy noted Resp: Effort & Inspection: normal respiratory effort and able to speak in complete sentences Auscultation: clear to auscultation bilaterally Cardio: Jugular venous distension: no JVD Rate: regular rate Rhythm: regular rhythm Heart sounds: S1 normal heart sound present and S2 normal heart sound present : General: Yes deferred Skin: Rashes: no rashes Wounds: no wounds Neuro: General: patient oriented x3 and CN's II-XI intact bilaterally Cranial nerves: Yes CN's II-XII intact bilaterally and Yes Equal, round and reactive pupils present Cognition (Neuro): normal cognition Speech: normal speech Gait exam (Neuro): Normal gait present Motor exam (neuro): 5/5 motor strength present throughout Extrem: General: normal to inspection, full ROM, no joint enlargement and no pedal edema Objective Data Vital Signs Vital Signs: Vital Signs - 24 hr 11/12/23 19:38 11/12/23 21:00 11/13/23 06:00 Temperature 97.7 F 98 F Pulse Rate 86 72 Respiratory Rate 15 20 Blood Pressure 130/62 122/62 Pulse Oximetry 98 95 Oxygen Delivery Room Air 11/13/23 08:00 11/13/23 08:00 Temperature Pulse Rate 87 87 Respiratory Rate 16 16 Blood Pressure 132/74 Pulse Oximetry 97 97 Oxygen Delivery Room Air Intake/Output Intake/Output: Intake & Output 11/10/23 11/11/23 11/12/23 11/13/23 23:59 23:59 23:59 23:59 Intake Total 1000 3127 720 400 Output Total 3200 2550 550 Balance 1000 -73 -1830 -150 Meds/Results Medications: Active Medications Generic Name Dose Route Start Last Admin Trade Name Freq PRN Reason Stop Dose Admin Buspirone HCl 30
--- NOTE | 2023-11-14 18:00 | PM.TDS ---
Transfer Discharge Sum: Prov Provider Date of admission: 11/10/23 23:28 Primary care physician: Gloria Harris, [facility] Admitting clinician: Oni Barba MD Consults: 11/10/23 23:28 Consult to Physician Routine Comment: Consulting Provider: Harjinder Driscoll Reason for consultation: intentional lorazepam overdose Has provider been notified: Yes DS: Admitting Diagnosis Discharge Date 11/13/23 Admitting Diagnosis Suicidal ideation DS: Discharge Diagnosis Discharge Diagnosis (1) Depression: Qualifiers: Depression Type: major depressive disorder Major depression recurrence: recurrent Active/Remission status: currently active Major depression episode severity: unspecified Qualified Code(s): F33.9 - Major depressive disorder, recurrent, unspecified Code(s): F32.A - Depression, unspecified Status: Acute (2) Suicidal ideation: Code(s): R45.851 - Suicidal ideations Status: Acute Assessment and Plan: Suicide precautions medically stable for inpatient discharge (3) Overdose: Code(s): T50.901A - Poisoning by unspecified drugs, medicaments and biological substances, accidental (unintentional), initial encounter Status: Acute Assessment and Plan: patient alert adn oriented x3 Poison control was called prior to admission patient has never required pressors this admission Patient having conversation and having adequate oral intake Patient is medically stable for discharge to inpatient psych Plan HLD continue Crestor DVT prophylaxis on Sq Lovenox Awaiting discharge to inpatient psych Transfer Discharge Sum: Med Medications Active and Home Medications: Home Medications buspirone 30 mg tablet 30 mg PO BID 09/28/21 [History Confirmed 11/11/23] carvedilol 6.25 mg tablet 6.25 mg PO BID 11/11/23 [History Confirmed 11/11/23] lamotrigine 100 mg tablet 100 mg PO DAILY 11/11/23 [History Confirmed 11/11/23] lorazepam 1 mg tablet 1 mg PO Q6H PRN Anxiety 11/11/23 [History Confirmed 11/11/23] melatonin 10 mg chewable tablet 10 mg PO HS 11/11/23 [History Confirmed 11/11/23] olanzapine 5 mg tablet 5 mg PO HS 11/11/23 [History Confirmed 11/11/23] rosuvastatin 40 mg tablet 40 mg PO HS 11/11/23 [History Confirmed 11/11/23] sacubitril 24 mg-valsartan 26 mg tablet (Entresto) 1 tablet PO BID 11/11/23 [History Confirmed 11/11/23] valbenazine 80 mg capsule (Ingrezza) 80 mg PO DAILY 11/11/23 [History Confirmed 11/11/23] desvenlafaxine 50 mg tablet,extended release 24 hr 100 mg PO DAILY 11/13/23 [History Confirmed 11/13/23] Transfer Discharge Sum: Hosp Hospital Course Hospital course: Lelo Cazares is a 68 year old female presented with lorazepam over does, patient took lorazepam 1 mg x 13 pills for a total of 30 mg, after ingestion she immediately told her who brought to the ER. Patient was given 3 L IV fluids, was be slightly somnolent in the ER, poison Control was notified and recommended monitoring patient as an inpatient.urine drug screen was negative .patient denies any of the medications or illicit drug use.Patient is medically stable for discharge to inpatient psych Time Spent with Patient Time attestation: Total time spent providing and/or coordinating transfer services:45mins Exam Narrative: General: Pleasant female in no acute distress HEENT:? Pupils equal and reactive, sclera is clear, moist oral mucosa Neck:? Supple Respiratory:? Clear to auscultation bilaterally, no wheezing, adequate air entry Cardiac:? S1-S2 normal, regular rate and rhythm Abdomen:? Soft, nondistended, nontender, normoactive bowel sounds Extremities:? No edema, palpable pedal pulses Neuro:? Somnolent but easily arousable, answers to questions and follows commands Skin:? No lesions noted Psych:? Flat affect, normal mentation Const: General: comfortable, no acute distress, well developed, alert, awake and average body habitus Nutrition
== END 2023-11-13 17:38 ==
LOC: ANHED 21:23 → ANHICU 11-11 01:33
PROVIDERS: Internal Medicine; Admitting Provider Internal Medicine; Emergency Provider Emergency Medicine; PCP Nurse Practitioner Family; Visit Provider General Practice
DX: T42.4X2A Poisoning by benzodiazepines, intentional self-harm, initial encounter (principal); R45.851 Suicidal ideations; E78.00 Pure hypercholesterolemia, unspecified; I50.9 Heart failure, unspecified; M81.0 Age-related osteoporosis without current pathological fracture; F41.9 Anxiety disorder, unspecified; F33.9 Major depressive disorder, recurrent, unspecified; F41.1 Generalized anxiety disorder; Z87.891 Personal history of nicotine dependence; Z20.822 Contact with and (suspected) exposure to COVID-19
CPT/HCPCS: 36415; 71045; 80053; 80307; 81001; 81025; 83735; 84100; 84443; 85025; 87635; 87641; 93005; 96360; 96361; 96372; 99285; A9270; G0378; J1650; J7030